=== PATIENT | female | born 1995 | race African-American/Black ===

== ENCOUNTER 2016-04-28 15:13 | Emergency (ER) | payer MEDICAID ==
[~2016-04-28] VITALS: Ht 172.7 cm; Wt 95.3 kg
[2016-04-28] MEDS ORDERED: ALBUTEROL FS 2.5 MG/3 ML VIAL.NEB CONTNEB ONE (15:30)
[2016-04-28] MEDS ORDERED: IPRATROPIUM NEB FS 0.5 MG/2.5 ML AMPUL.NEB NEB ONE (15:30)
[2016-04-28] MEDS ORDERED: IV NS 0.9% 1,000 ML BAG IV ONE (15:30)
[2016-04-28] MEDS ORDERED: IV SET PRIMARY 1 EA INFUS.SET MC ONE (15:49)
[2016-04-28] MEDS ORDERED: IV NS 0.9% 1,000 ML ONE (15:49)
[2016-04-28] MEDS ORDERED: ALBUTEROL FS 2.5 MG/3 ML VIAL.NEB ONE (15:52)
[2016-04-28] MEDS ORDERED: IPRATROPIUM NEB FS 0.5 MG/2.5 ML AMPUL.NEB ONE ×2 (15:53→15:57)
[2016-04-28 17:25] VITALS: BP 112/71
== END 2016-04-28 17:26 | disposition home or self-care (01) ==
LOC: ER 15:14
DX: J45.901 Unspecified asthma with (acute) exacerbation (principal); R55 Syncope and collapse
CPT/HCPCS: A4606; J7030; Z7610